=== PATIENT | female | born 1985 ===

== ENCOUNTER 2016-06-12 17:07 | Outpatient (CLI) | payer BC ==
[2016-06-12 20:26] LABS: ALT (SGPT) 15 U/L (0-55); AST (SGOT) 14 U/L (5-34); Alkaline Phosphatase 70 U/L (40-150); Anion Gap 16 mmol/L (10-20); BUN (Urea Nitrogen) 8 mg/dL (7.0-18.7); Bilirubin, Direct 0.1 mg/dL (0.1-0.3); Bilirubin, Total 0.2 mg/dL (0.2-1.2); Calc. Creatinine Clearance 0 mL/min (70-130); Calcium 8.8 mg/dL (7.8-10.44); Carbon Dioxide 20 mmol/L (22-29); Chloride 107 mmol/L (98-107); Estimated GFR-MDRD Greater than 90; LDL Cholesterol, Calculated 137 mg/dL; Protein, Total 7.4 g/dL (6.0-8.3)
[2016-06-12 20:47] LABS: Hemoglobin A1c 7.8 % (4.0-6.0)
== END 2016-06-12 17:08 | disposition home or self-care (01) ==
LOC: NAV SJFMSP 17:07
PROVIDERS: ATTEND Family Medicine
DX: E11.9 Type 2 diabetes mellitus without complications (principal); B35.1 Tinea unguium
CPT/HCPCS: 80048; 80061; 80076; 83036